=== PATIENT | male | born 1950 | race Caucasian/White ===

== ENCOUNTER 2022-05-11 12:19 | Observation (INO) ==
[2022-05-11 13:11] LABS: Basophils % 0.6 %; Eosinophils # 0.5 K/mcL (0.0-0.6); Eosinophils % 6.4 %; Hematocrit 37.6 % (37.5-50.1); Hemoglobin 12.2 g/dL (12.9-16.9); Immature Granulocytes % 0.1 % (0-4); Lymphocytes # 1.5 K/mcL (0.6-4.6); Lymphocytes % 21.3 %; Mean Corpuscular HGB Conc 32.4 g/dL (31.6-35.5); Mean Corpuscular Hemoglobin 31.2 pg (28.0-33.3); Mean Corpuscular Volume 96.2 fL (83.0-100.0); Mean Platelet Volume 10.7 fL (9.4-12.4); Monocytes # 0.7 K/mcL (0.0-1.3); Monocytes % 10.2 %; Neutrophils # 4.4 K/mcL (1.6-8.9); Platelet Count 203 K/mcL (140-400); Red Blood Count 3.91 M/mcL (4.19-5.50); Red Cell Distribution Width 13.8 % (11.5-14.5); Segmented Neutrophils % 61.4 %; White Blood Count 7.2 K/mcL (4.3-11.1)
[2022-05-11 13:29] LABS: Calcium 9.1 mg/dL (8.6-10.3); Potassium 3.8 mEq/L (3.5-5.1)
[2022-05-11 13:34] LABS: Troponin I 0.14 ng/mL (< 0.04)
[2022-05-11] MEDS ORDERED: *HR* Labetalol 20 MG/4 ML SYRINGE IVP STA (14:51)
[2022-05-11] MEDS ORDERED: *HR* Labetalol 20 MG/4 ML SYRINGE IVP ONE (16:57)
[2022-05-11] MEDS: niCARdipine 20 MG/200 ML MLS IVC SCH (19:22)
[2022-05-11] MEDS ORDERED: Ondansetron 4 MG/2 ML VIAL IVP PRN (19:28)
[2022-05-11] MEDS ORDERED: Melatonin 3 MG TABLET PO PRN (19:28)
[2022-05-11] MEDS ORDERED: Naloxone 0.4 MG/ML INJ IVP PRN (19:28)
[2022-05-11] MEDS ORDERED: Acetaminophen 325 MG TABLET PO PRN (19:34)
[2022-05-11] MEDS ORDERED: Aspirin 325 MG TABLET PO ONE (19:56)
[2022-05-12] MEDS: niCARdipine 20 MG/200 ML MLS IVC SCH ×3 (00:38→08:22)
[2022-05-12 01:35] LABS: Hemoglobin 11.4 g/dL (12.9-16.9); Mean Corpuscular HGB Conc 32.6 g/dL (31.6-35.5); Mean Corpuscular Hemoglobin 30.7 pg (28.0-33.3); Mean Corpuscular Volume 94.3 fL (83.0-100.0); Mean Platelet Volume 10.4 fL (9.4-12.4); Platelet Count 187 K/mcL (140-400); Red Blood Count 3.71 M/mcL (4.19-5.50); Red Cell Distribution Width 13.8 % (11.5-14.5); White Blood Count 6.9 K/mcL (4.3-11.1)
[2022-05-12 01:41] LABS: Estimated Average Glucose 114 mg/dl; Hemoglobin A1C 5.6 %
[2022-05-12 02:00] LABS: Calcium 8.9 mg/dL (8.6-10.3); Chol/HDL Ratio 2.7 (0-4.9); Potassium 3.6 mEq/L (3.5-5.1)
[2022-05-12 02:03] LABS: Troponin I 0.08 ng/mL (< 0.04)
[2022-05-12] MEDS: *HR* Heparin 5,000 UNIT/ML VIAL SQ SCH ×3 (06:11→20:09)
[2022-05-12] MEDS: Aspirin 81 MG TAB.CHEW PO SCH (08:22)
[2022-05-12] MEDS ORDERED: amLODIPine 5 MG TABLET PO SCH (10:15)
[2022-05-12] MEDS: carvediloL 6.25 MG TABLET PO SCH ×2 (11:02→18:25)
[2022-05-12] MEDS: Doxycycline 100 MG CAPSULE PO SCH ×2 (11:02→20:09)
[2022-05-12] MEDS: lisinopriL 10 MG TABLET PO SCH (11:02)
[2022-05-12] MEDS ORDERED: carvediloL 6.25 MG TABLET PO SCH (17:00)
[2022-05-13 02:23] LABS: Basophils # 0.1 K/mcL (0.0-0.2); Basophils % 0.8 %; Eosinophils # 0.5 K/mcL (0.0-0.6); Eosinophils % 8.5 %; Hematocrit 35.7 % (37.5-50.1); Hemoglobin 11.3 g/dL (12.9-16.9); Immature Granulocytes % 0.2 % (0-4); Lymphocytes # 1.6 K/mcL (0.6-4.6); Lymphocytes % 27.3 %; Mean Corpuscular HGB Conc 31.7 g/dL (31.6-35.5); Mean Corpuscular Hemoglobin 30.2 pg (28.0-33.3); Mean Corpuscular Volume 95.5 fL (83.0-100.0); Mean Platelet Volume 10.4 fL (9.4-12.4); Monocytes # 0.8 K/mcL (0.0-1.3); Monocytes % 12.7 %; Platelet Count 182 K/mcL (140-400); Red Blood Count 3.74 M/mcL (4.19-5.50); Red Cell Distribution Width 14.2 % (11.5-14.5); Segmented Neutrophils % 50.5 %
[2022-05-13 02:41] LABS: Calcium 8.7 mg/dL (8.6-10.3)
[2022-05-13] MEDS: *HR* Heparin 5,000 UNIT/ML VIAL SQ SCH ×3 (05:04→21:12)
[2022-05-13] MEDS: carvediloL 6.25 MG TABLET PO SCH ×2 (08:04→19:51)
[2022-05-13] MEDS: Doxycycline 100 MG CAPSULE PO SCH ×2 (08:04→21:12)
[2022-05-13] MEDS: Aspirin 81 MG TAB.CHEW PO SCH (08:05)
[2022-05-13] MEDS: lisinopriL 10 MG TABLET PO SCH (08:05)
[2022-05-13] MEDS ORDERED: MethylPREDNISolone 40 MG/ML VIAL IVP ONE (11:01)
[2022-05-13] MEDS ORDERED: Famotidine 20 MG/2 ML VIAL IVP ONE (11:02)
[2022-05-13] MEDS ORDERED: MethylPREDNISolone 40 MG/ML VIAL ONE (11:02)
[2022-05-13] MEDS ORDERED: niCARdipine 0 MG/0 ML MLS IVC ONE ×2 (11:20→12:41)
[2022-05-13 11:22] LABS: Hematocrit 37.3 % (37.5-50.1); Hemoglobin 12.2 g/dL (12.9-16.9); Mean Corpuscular HGB Conc 32.7 g/dL (31.6-35.5); Mean Corpuscular Volume 94.9 fL (83.0-100.0); Mean Platelet Volume 10.3 fL (9.4-12.4); Platelet Count 185 K/mcL (140-400); Red Blood Count 3.93 M/mcL (4.19-5.50); Red Cell Distribution Width 14.1 % (11.5-14.5); White Blood Count 5.9 K/mcL (4.3-11.1)
[2022-05-13 11:28] LABS: INR 1.1; Prothrombin Time 12.5 Seconds (9.4-12.1)
[2022-05-13 11:31] LABS: Activated Partial Thrombo Time 32.3 Seconds (26.0-36.0)
[2022-05-13] MEDS ORDERED: Iopamidol - 370 500 ML MLS IVP ONE (11:48)
[2022-05-13 11:50] LABS: Alanine Aminotransferase 12 Units/L (7-52); Albumin 3.2 g/dL (3.5-5.7); Albumin/Globulin Ratio 1.1 (1.1-2.2); Alkaline Phosphatase 47 Units/L (34-104); Aspartate Amino Transferase 16 Units/L (13-39); BUN/Creatinine Ratio 21 (6-26); Bilirubin,Total 0.4 mg/dL (0.3-1.0); Blood Urea Nitrogen 19 mg/dL (8-23); Carbon Dioxide 26 mEq/L (23-29); Chloride 110 mEq/L (98-107); Glucose 101 mg/dL (70-105); Osmolality,Calculated 294 (280-300); Potassium 3.9 mEq/L (3.5-5.1); Sodium 141 mEq/L (136-145); Total Protein 6.2 g/dL (6.4-8.9); Troponin I 0.03 ng/mL (< 0.04)
[2022-05-13] MEDS: amLODIPine 5 MG TABLET PO SCH (14:05)
[2022-05-14 02:00] LABS: Basophils % 0.3 %; Eosinophils % 0.1 %; Hemoglobin 11.9 g/dL (12.9-16.9); Immature Granulocytes % 0.3 % (0-4); Lymphocytes % 13.4 %; Mean Corpuscular HGB Conc 32.2 g/dL (31.6-35.5); Mean Corpuscular Hemoglobin 30.6 pg (28.0-33.3); Mean Corpuscular Volume 95.1 fL (83.0-100.0); Mean Platelet Volume 10.8 fL (9.4-12.4); Monocytes # 0.7 K/mcL (0.0-1.3); Monocytes % 9.3 %; Neutrophils # 5.5 K/mcL (1.6-8.9); Platelet Count 199 K/mcL (140-400); Red Blood Count 3.89 M/mcL (4.19-5.50); Segmented Neutrophils % 76.6 %; White Blood Count 7.2 K/mcL (4.3-11.1)
[2022-05-14 02:20] LABS: Calcium 8.8 mg/dL (8.6-10.3); Potassium 3.9 mEq/L (3.5-5.1)
[2022-05-14] MEDS: *HR* Heparin 5,000 UNIT/ML VIAL SQ SCH (05:31)
[2022-05-14] MEDS: Doxycycline 100 MG CAPSULE PO SCH (08:41)
[2022-05-14] MEDS: carvediloL 6.25 MG TABLET PO SCH (08:41)
[2022-05-14] MEDS: amLODIPine 5 MG TABLET PO SCH (08:41)
[2022-05-14] MEDS: Aspirin 81 MG TAB.CHEW PO SCH (08:41)
[2022-05-14 11:36] VITALS: TEMP 97.8
[2022-05-14 13:49] VITALS: BP 145/69; O2SAT 97
[2022-05-14 14:12] VITALS: PULSE 70
[2022-05-15] MEDS ORDERED: amLODIPine 5 MG TABLET PO SCH ×2 (09:00)
== END 2022-05-14 15:04 | disposition home or self-care (01) ==
LOC: 3BNU 12:19 → EMEROOARM 12:19 → 2NNU 19:37
PROVIDERS: ADMIT Internal Medicine; ATTEND Internal Medicine